=== PATIENT | female | born 1980 | race Caucasian/White ===

== ENCOUNTER 2018-12-29 13:22 | Emergency (ER) | payer BC ==
[2018-12-29 13:37] VITALS: BP 122/84; PULSE 80
[2018-12-29] MEDS ORDERED: diphenhydrAMINE 50 MG/ML SDV IVPUSH ONE (13:38)
[2018-12-29] MEDS ORDERED: Ondansetron 4 MG/2 ML SDV IVPUSH ONE (13:38)
[2018-12-29] MEDS ORDERED: Sodium Chloride 0.9% 1,000 ML IV ONE (13:38)
[2018-12-29] MEDS ORDERED: Metoclopramide 10 MG/2 ML SDV IV ONE (13:38)
--- NOTE | 2018-12-29 13:48 | EDM.PDOC ---
ED HPI GENERAL MEDICAL PROBLEM - General Chief Complaint: Headache Stated Complaint: HEADACHE Time Seen by Provider: 12/29/18 13:25 Source of Information: Reports: Patient History Limitations: Reports: No Limitations - History of Present Illness INITIAL COMMENTS - FREE TEXT/NARRATIVE: HISTORY AND PHYSICAL: History of present illness: Patient is a 38-year-old female who presents to the ED today with concern of a headache for the past 2 days. Patient states she has a history of migraines but her headache today is unusual for her usual migraines. Patient states her usual migraines are in the front and are not that bothersome for her. Patient states his headache today is more in the back but does also have nausea and photophobia. Patient states she saw primary care provider at [facility] this morning who gave her 60 mg of Toradol IM. Patient states after the Toradol she did not feel better and started to feel worse so came to the ED. Patient denies any associated of symptoms. Patient denies any other symptoms or concerns. Patient states she is not as her has a vasectomy. Patient denies fever, chills, chest pain, shortness of breath, or cough. Denies neck stiff ness, change in vision, syncope, or near syncope. Denies vomiting, abdominal pain, diarrhea, constipation, or dysuria. Has not noted any blood in urine or stool. Patient has been eating and drinking appropriately. Review of systems: As per history of present illness and below otherwise all systems reviewed and negative. Past medical history: As per history of present illness and as reviewed below otherwise noncontributory. Surgical history: As per history of present illness and as reviewed below otherwise noncontributory. Social history: See social history for further information Family history: As per history of present illness and as reviewed below otherwise noncontributory. Physical exam: General: Patient is alert, oriented, and in no acute distress. Patient sitting comfortably on exam table. HEENT: Atraumatic, normocephalic, pupils equal and reactive bilaterally, negative for conjunctival pallor or scleral icterus, mucous membranes moist, TMs normal bilaterally, throat clear, neck supple, nontender, trachea midline. No drooling or trismus noted. No meningeal signs. No hot potato voice noted. Lungs: Clear to auscultation, breath sounds equal bilaterally, chest nontender. Heart: S1S2, regular rate and rhythm without overt murmur Abdomen: Soft, nondistended, nontender. Negative for masses or hepatosplenomegaly. Negative for costovertebral tenderness. Pelvis: Stable nontender. Genitourinary: Deferred. Rectal: Deferred. Skin: Intact, warm, dry. No lesions or rashes noted. Extremities: Atraumatic, negative for cords or calf pain. Neurovascular unremarkable. Neuro: Awake, alert, oriented. Cranial nerves II through XII unremarkable. Cerebellum unremarkable. Motor and sensory unremarkable throughout. Exam nonfocal. Notes: Patient does express improvement of her symptoms today in the ED. Discussed the importance for follow-up with a primary care provider. Voices understanding and is agreeable to plan of care. Denies any further questions or concerns at this time. Diagnostics: Head CT Therapeutics: Saline, Zofran, Benadryl, Reglan Prescription: None Impression: Headache Plan: 1. Encourage small but frequent sips of fluid to prevent dehydration. 2. You can alternate ibuprofen and Tylenol as directed for pain and discomfort. 3. Follow up with your primary care provider as discussed. Return to the ED as needed and as discussed. Definitive disposition and diagnosis as appropriate pending reevaluation and review of above. Headahce Pain Score (Numeric/FACES): 7 - Related Data Allergies Allergy/AdvReac Type Severity Reaction Status Date / Time Sulfa (Sulfonamide Allergy Hives Verified 12/29/18 13:28 Antibiotics) narcotics Allergy Itching Uncoded 09/10/15 21:42 Home Meds: Home Meds Albuterol Sulfate [Albuterol Sulfate HFA] 1 puff INH ASDIRECTED PRN 03/15/14 [ History] LORazepam [Ativan] 1 mg PO DAILY PRN 09/10/15 [History] Ondansetron [Zofran ODT] 4 mg PO PRN 12/29/18 [History] Past Medical History HEENT History: Reports: None Cardiovascular History: Reports: None Respiratory History: Reports: Asthma Gastrointestinal History: Reports: None Genitourinary History: Reports: None [employer]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: Musculoskeletal History: Reports: None Neurological History: Reports: Migraines Psychiatric History: Reports: Anxiety Endocrine/Metabolic History: Reports: None Hematologic History: Reports: None Immunologic History: Reports: None Oncologic (Cancer) History: Reports: None Dermatologic History: Reports: Other (See Below) Other Dermatologic History: right forearm cyst ( benign) - Infectious Disease History Infectious Disease History: Reports: None - Past Surgical History Head Surgeries/Procedures: Reports: None HEENT Surgical History: Reports: None Cardiovascular Surgical History: Reports: None Respiratory Surgical History: Reports: None GI Surgical History: Reports: None Female Surgical History: Reports: None Endocrine Surgical History: Reports: None Social & Family History - Family History Family Medical History: Noncontributory - Tobacco Use Smoking Status *Q: Never Smoker Second Hand Smoke Exposure: No - Caffeine Use Caffeine Use: Reports: Coffee, Soda - Recreational Drug Use Recreational Drug Use: No ED ROS GENERAL - Review of Systems Review Of Systems: Comprehensive ROS is negative, except as noted in HPI. ED EXAM, GENERAL - Physical Exam Exam: See Below (See dictation) Course - Vital Signs Last Recorded V/S: Last Vital Signs Temp 97.6 F 12/29/18 13:34 Pulse 80 12/29/18 13:34 Resp 18 12/29/18 13:34 BP 122/84 12/29/18 13:34 Pulse Ox 98 12/29/18 13:34 - Orders/Labs/Meds Meds: Medications Discontinued Medications Generic Name Dose Route Start Last Admin Trade Name Guillaumeq PRN Reason Stop Dose Admin Diphenhydramine HCl 50 mg 12/29/18 13:38 12/29/18 14:11 Benadryl IVPUSH 12/29/18 13:39 50 mg ONETIME ONE Administration Sodium Chloride 1,000 mls @ 999 mls/hr 12/29/18 13:38 12/29/18 14:11 Normal Saline IV 12/29/18 14:38 999 mls/hr STAT ONE Administration Metoclopramide HCl 10 mg 12/29/18 13:38 12/29/18 14:14 Reglan IV 12/29/18 13:39 10 mg ONETIME ONE Administration Ondansetron HCl 4 mg 12/29/18 13:38 12/29/18 14:12 Zofran IVPUSH 12/29/18 13:39 4 mg ONETIME ONE Administration Departure - Departure Time of Disposition: 14:53 Disposition: Home, Self-Care 01 Clinical Impression: Headache Qualifiers: Headache type: unspecified Headache chronicity pattern: acute headache Intractability: not intractable Qualified Code(s): R51 - Headache - Discharge Information Referrals: Dima Pimentel MD [Primary Care Provider] - Forms: ED Department Discharge Additional Instructions: The following information is given to patients seen in the emergency department who are being discharged to home. This information is to outline your options for follow-up care. We provide all patients seen in our emergency department with a follow-up referral. The need for follow-up, as well as the timing and circumstances, are variable depending upon the specifics of your emergency department visit. If you don't have a primary care physician on staff, we will provide you with a referral. We always advise you to contact your personal physician following an emergency department visit to inform them of the circumstance of the visit and for follow-up with them and/or the need for any referrals to a consulting specialist. The emergency department will also refer you to a specialist when appropriate. This referral assures that you have the opportunity for follow-up care with a specialist. All of these measure are taken in an effort to provide you with optimal care, which includes your follow-up. Under all circumstances we always encourage you to contact your private physician who remains a resource for coordinating your care. When calling for follow-up care, please make the office aware that this follow-up is from your recent emergency room visit. If for any reason you are refused follow-up, please contact the [facility] Emergency Department at and asked to speak to the emergency department charge nurse. [facility] [address] [place] [id number] [facility] [address] [place] [id number] 1. Encourage small but frequent sips of fluid to prevent dehydration. 2. You can alternate ibuprofen and Tylenol as directed for pain and discomfort. 3. Follow up with your primary care provider as discussed. Return to the ED as needed and as discussed.
--- NOTE | 2018-12-29 14:24 | CT ---
EXAM DATE: 12/29/18 PATIENT'S AGE: [address] Technique: Multiple axial sections through the brain were obtained. Intravenous contrast was not utilized. Comparison: Prior head CT study of 09/10/15. Findings: Ventricles along with basal cisterns and sulci over convexities appear within normal limits. No abnormal parenchymal densities are seen. No evidence of intracranial hemorrhage. No midline shift or mass effect is seen. Bone window settings were obtained. No acute paranasal sinus findings are seen within the visualized sinuses. Mastoid sinuses are clear. No acute calvarial abnormality is appreciated. Impression: 1. Nothing acute is appreciated on noncontrast head CT exam. Diagnostic code #1 Report Signed by Proxy. [facility]
== END 2018-12-29 15:47 | disposition home or self-care (01) ==
LOC: MW.ED 13:22
DX: R51 Headache (principal); J45.909 Unspecified asthma, uncomplicated; F41.9 Anxiety disorder, unspecified; Z88.2 Allergy status to sulfonamides; Z88.5 Allergy status to narcotic agent; Z79.899 Other long term (current) drug therapy
CPT/HCPCS: 70450; 96374; 96375; 99284; J1200; J2405; J2765; J7040; 99283

== ENCOUNTER 2020-04-07 11:51 | Emergency (ER) | payer BC ==
[2020-04-07] MEDS ORDERED: Sodium Chloride 0.9% 10 ML Syringe FLUSH PRN (12:52)
[2020-04-07] MEDS ORDERED: Sodium Chloride 0.9% 2.5 ML Syringe FLUSH PRN (12:52)
[2020-04-07] MEDS ORDERED: Morphine 4 MG/ML Syringe IVPUSH ONE ×2 (12:54→15:18)
[2020-04-07] MEDS ORDERED: diphenhydrAMINE 50 MG/ML SDV IVPUSH ONE (12:54)
[2020-04-07] MEDS ORDERED: Ketorolac 30 MG/ML SDV IVPUSH ONE (12:54)
[2020-04-07] MEDS ORDERED: Sodium Chloride 0.9% 1,000 ML IV ONE (12:55)
--- NOTE | 2020-04-07 13:18 | EDM.PDOC ---
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 Patient complains of pain with movement in the right wrist, radiating to the back of her right elbow which is typical for her. Patient states she took 1 dose of her Lyrica this morning and one [id number] Advil last night for her symptoms. She has had multiple surgeries at [facility] with a vascular specialist as the AV malformations are "disrupting nerves" which have resulted in some weakness of her hand according to patient. Patient stats she had a surgery in January 2020 and is scheduled to have another surgery in 1 month at [facility] to further address the pain that the AV malformations are causing. She states that she saw her surgeon this past week and was told to expect worsening pain and at this time surgery is still scheduled for 1 month out. Patient denies any new weakness of the hand/extremity from her baseline, any new swelling, or discoloration. Denies injury or trauma. Patient denies fever, chills, chest pain, shortness of breath, or cough. Denies headache, neck stiff ness, change in vision, syncope, or near syncope. Denies nausea, vomiting, abdominal pain, diarrhea, constipation, or dysuria. Has not noted any blood in urine or stool. Patient has been eating and drinking appropriately. Review of systems: As per history of present illness and below otherwise all systems reviewed and negative. Past medical history: As per history of present illness and as reviewed below otherwise noncontributory. Surgical history: As per history of present illness and as reviewed below otherwise noncontributory. Social history: See social history for further information Family history: As per history of present illness and as reviewed below otherwise noncontributory. Physical exam: General: Patient is alert, oriented, and in no acute distress. Patient sitting on exam table, holding right arm cradled into abdomen. Vitals stable and reviewed by me. HEENT: Atraumatic, normocephalic, pupils equal and reactive bilaterally, negative for conjunctival pallor or scleral icterus, mucous membranes moist, TMs normal bilaterally, throat clear, neck supple, nontender, trachea midline. No drooling or trismus noted. No meningeal signs. No hot potato voice noted. Lungs: Clear to auscultation, breath sounds equal bilaterally, chest nontender. Heart: S1S2, regular rate and rhythm without overt murmur. Abdomen: Soft, nondistended, nontender. Negative for masses or hepatos plenomegaly. Negative for costovertebral tenderness. Pelvis: Stable nontender. Genitourinary: Deferred. Rectal: Deferred. Skin: No abnormal redness, pallor, superficial ecchymosis, or poikilothermia noted in right forearm compared to left forearm. There are areas of increased vascular tissues noted underneath the forearm. Otherwise, intact, warm, dry. No lesions or rashes noted. Extremities: There is a healed remote incision over the right forearm that is well healed, consistent with recent surgical history. Decreased right wrist strength, which patient states is baseline. Patient does have full ROM of the complete right UE but does have hesitancy with ROM of the right wrist and significant pain with ROM of right wrist. Radial and ulnar pulses intact of the RUE via bedside doppler. Cap refill < 2 seconds of RUE. Otherwise, atraumatic, negative for cords or calf pain. Neurovascular unremarkable; circulation of ulnar and radial arteries of the right wrist confirmed with Doppler ultrasound. Compartments soft. No gross deformity noted. No swelling noted. Neuro: Awake, alert, oriented. Cranial nerves II through XII unremarkable. Cerebellum unremarkable. Motor and sensory unremarkable throughout. Exam nonfocal. Notes: Upon initial exam on patient, she is uncomfortable with movement of her right wrist. She does have decreased strength of her right wrist but states that this is per her her baseline and has not changed. She denies any anaphylactic allergies to pain medication but states that she has been "itchy" with narcotic use in the past. Patient was premedicated with 50 mg of Benadryl prior to administration of pain medication. Upon reexamination of patient after therapeutics, she appears much more comfortable and states that she has improvement of her pain of her forearm. I had a through discussion with patient about contacting her surgeon at [facility], as she is scheduled to have surgery on the AV malformations in 1 month. Voices understanding and is agreeable to plan of care. Denies any further questions or concerns at this time. Diagnostics: CBC, CMP, beta hCG, CT with contrast of the right upper extremity Therapeutics: Toradol, morphine, diphenhydramine, normal saline Prescription: Liberty (#5) Impression: Right forearm pain, acute on chronic AV malformations, right forearm Plan: 1. Rest the affected extremity. 2. Tylenol and/or Ibuprofen as directed for pain management or discomfort. Take medication as prescribed for moderate-severe pain. Caution taking this medication outside of the home. Do not operate vehicles or heavy equipment while taking this medication. 3. Follow up with your vascular surgeon as discussed. Return to the ED as needed and as discussed. Definitive disposition and diagnosis as appropriate pending reevaluation and review of above. R arm Pain Score (Numeric/FACES): 7 - Related Data Allergies Allergy/AdvReac Type Severity Reaction Status Date / Time Sulfa (Sulfonamide Allergy Hives Verified 04/07/20 12:05 Antibiotics) narcotics Allergy Itching Uncoded 04/07/20 12:05 Home Meds: Home Meds Albuterol Sulfate [Albuterol Sulfate HFA] 1 puff INH ASDIRECTED PRN 03/15/14 [History] Acetaminophen/HYDROcodone [Liberty 325-5 MG] 1 tab PO Q6H PRN #5 tablet 04/07/20 [Rx] Pregabalin [Lyrica] 75 mg PO BID 04/07/20 [History] Past Medical History HEENT History: Reports: None Cardiovascular History: Reports: None Respiratory History: Reports: Asthma Gastrointestinal History: Reports: None Genitourinary History: Reports: None [employer]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: Musculoskeletal History: Reports: None Neurological History: Reports: Migraines Psychiatric History: Reports: Anxiety Endocrine/Metabolic History: Reports: None Hematologic History: Reports: None Immunologic History: Reports: None Oncologic (Cancer) History: Reports: None Dermatologic History: Reports: Other (See Below) Other Dermatologic History: right forearm cyst ( benign) - Infectious Disease History Infectious Disease History: Reports: None - Past Surgical History Head Surgeries/Procedures: Reports: None HEENT Surgical History: Reports: None Cardiovascular Surgical History: Reports: None Respiratory Surgical History: Reports: None GI Surgical History: Reports: None Female Surgical History: Reports: None Endocrine Surgical History: Reports: None Social & Family History - Family History Family Medical History: No Pertinent Family History - Caffeine Use Caffeine Use: Reports: Coffee, Soda Review of Systems - Review of Systems Review Of Systems: Comprehensive ROS is negative, except as noted in HPI. ED EXAM, GENERAL - Physical Exam Exam: See Below (see dictation) Course - Vital Signs Last Recorded V/S: Last Vital Signs Temp 98.1 F 04/07/20 11:58 Pulse 74 04/07/20 16:00 Resp 15 04/07/20 16:00 BP 112/71 04/07/20 16:00 Pulse Ox 97 04/07/20 16:00 - Orders/Labs/Meds Orders: Active Orders 24 hr Category Date Time Status Saline Lock Insert [OM.PC] Stat Oth 04/07/20 12:52 Ordered Labs: Laboratory Tests 04/07/20 04/07/20 04/07/20 Range/Units 13:08 13:08 13:08 WBC 5.91 (4.0-11.0) K/uL RBC 4.39 (4.30-5.90) M/uL Hgb 11.1 L (12.0-16.0) g/dL Hct 36.4 (36.0-46.0) % MCV 82.9 (80.0-98.0) fL MCH 25.3 L (27.0-32.0) pg MCHC 30.5 L (31.0-37.0) g/dL RDW Std Deviation 55.9 (28.0-62.0) fl RDW Coeff of Ramiro 18 H (11.0-15.0) % Plt Count 435 H (150-400) K/uL MPV 9.60 (7.40-12.00) fL Neut % (Auto) 48.4 (48.0-80.0) % Lymph % (Auto) 36.0 (16.0-40.0) % Erie % (Auto) 12.2 (0.0-15.0) % Eos % (Auto) 2.2 (0.0-7.0) % Baso % (Auto) 1.2 (0.0-1.5) % Neut # (Auto) 2.9 (1.4-5.7) K/uL Lymph # (Auto) 2.1 (0.6-2.4) K/uL Erie # (Auto) 0.7 (0.0-0.8) K/uL Eos # (Auto) 0.1 (0.0-0.7) K/uL Baso # (Auto) 0.1 (0.0-0.1) K/uL Nucleated RBC % 0.0 /100WBC Nucleated RBCs # 0 K/uL Sodium 141 (136-145) mmol/L Potassium 3.5 (3.5-5.1) mmol/L Chloride 106 (98-107) mmol/L Carbon Dioxide 26.2 (21.0-32.0) mmol/L BUN 10 (7.0-18.0) mg/dL Creatinine 0.8 (0.6-1.0) mg/dL Est Cr Clr Drug Dosing 89.26 mL/min Estimated GFR (MDRD) > 60.0 ml/min Glucose 81 (74-106) mg/dL Calcium 8.3 L (8.5-10.1) mg/dL Total Bilirubin 0.4 (0.2-1.0) mg/dL AST 9 L (15-37) IU/L ALT 14 (14-63) IU/L Alkaline Phosphatase 83 (46-116) U/L Total Protein 7.4 (6.4-8.2) g/dL Albumin 3.6 (3.4-5.0) g/dL Globulin 3.8 (2.6-4.0) g/dL Albumin/Globulin Ratio 0.9 (0.9-1.6) HCG, Qual NEGATIVE (NEG) Meds: Medications Discontinued Medications Generic Name Dose Route Start Last Admin Trade Name Freq PRN Reason Stop Dose Admin Diphenhydramine HCl 50 mg 04/07/20 12:54 04/07/20 13:11 Benadryl IVPUSH 04/07/20 12:55 50 mg ONETIME ONE Administration Sodium Chloride 1,000 mls @ 999 mls/hr 04/07/20 12:55 04/07/20 13:11 Normal Saline IV 04/07/20 13:55 999 mls/hr STAT ONE Administration Iopamidol 100 ml 04/07/20 14:36 04/07/20 14:36 Isovue Multipack-370 (76%) IVPUSH 04/07/20 14:37 100 ml ONETIME ONE Administration Ketorolac Tromethamine 30 mg 04/07/20 12:54 04/07/20 13:13 Toradol IVPUSH 04/07/20 12:55 30 mg ONETIME ONE Administration Morphine Sulfate 4 mg 04/07/20 12:54 04/07/20 13:24 Morphine IVPUSH 04/07/20 12:55 4 mg ONETIME ONE Administration Morphine Sulfate 4 mg 04/07/20 15:18 04/07/20 15:22 Morphine IVPUSH 04/07/20 15:19 4 mg ONETIME ONE Administration Ondansetron HCl 4 mg 04/07/20 13:52 04/07/20 13:59 Zofran IVPUSH 04/07/20 13:53 4 mg ONETIME ONE Administration Sodium Chloride 10 ml 04/07/20 12:52 04/07/20 13:11 Saline Flush FLUSH 10 ml ASDIRECTED PRN Administration Keep Vein Open Sodium Chloride 2.5 ml 04/07/20 12:52 04/07/20 13:11 Saline Flush FLUSH 2.5 ml ASDIRECTED PRN Administration Keep Vein Open Departure - Departure Time of Disposition: 15:49 Disposition: Home, Self-Care 01 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 This information is to outline your options for follow-up care. We provide all patients seen in our emergency department with a follow-up referral. The need for follow-up, as well as the timing and circumstances, are variable depending upon the specifics of your emergency department visit. If you don't have a primary care physician on staff, we will provide you with a referral. We always advise you to contact your personal physician following an emergency department visit to inform them of the circumstance of the visit and for follow-up with them and/or the need for any referrals to a consulting specialist. The emergency department will also refer you to a specialist when appropriate. This referral assures that you have the opportunity for follow-up care with a specialist. All of these measure are taken in an effort to provide you with optimal care, which includes your follow-up. Under all circumstances we always encourage you to contact your private physician who remains a resource for coordinating your care. When calling for follow-up care, please make the office aware that this follow-up is from your recent emergency room visit. If for any reason you are refused follow-up, please contact the [facility] Emergency Department at and asked to speak to the emergency department charge nurse. [facility] [address] [place] [id number] [facility] [address] [place] [id number] 1. Rest the affected extremity. 2. Tylenol and/or Ibuprofen as directed for pain management or discomfort. Take medication as prescribed for moderate-severe pain. Caution taking this medication outside of the home. Do not operate vehicles or heavy equipment while taking this medication. 3. Follow up with your vascular surgeon as discussed. Return to the ED as needed and as discussed. Sepsis Event Note (ED) - Evaluation Sepsis Screening Result: No Definite Risk - Focused Exam Vital Signs: Vital Signs Temp Pulse Resp BP Pulse Ox 04/07/20 16:00 74 15 112/71 97 04/07/20 15:15 74 17 111/70 98 04/07/20 13:15 103 H 17 118/87 97 04/07/20 11:58 98.1 F 80 17 115/68 97 - My Orders Last 24 Hours: My Active Orders 04/07/20 12:52 Saline Lock Insert [OM.PC] Stat - Assessment/Plan Last 24 Hours: My Active Orders 04/07/20 12:52 Saline Lock Insert [OM.PC] Stat
[2020-04-07 13:41] LABS: BLOOD UREA NITROGEN,BUN 10 mg/dL (7.0-18.0); CARBON DIOXIDE,CO2 26.2 mmol/L (21.0-32.0); CHLORIDE,CL 106 mmol/L (98-107); GLUCOSE RANDOM 81 mg/dL (74-106); POTASSIUM,K 3.5 mmol/L (3.5-5.1); SODIUM,NA 141 mmol/L (136-145)
[2020-04-07] MEDS ORDERED: Ondansetron 4 MG/2 ML SDV IVPUSH ONE (13:52)
[2020-04-07] MEDS ORDERED: Iopamidol 755 MG/ML 500 ML Multipack Bottle IVPUSH ONE (14:36)
--- NOTE | 2020-04-07 15:09 | CT ---
HISTORY: Arm pain. History vascular malformation and multiple surgeries. TECHNIQUE: CT angiogram of the right arm with IV contrast. 100 mL [id number] IV. COMPARISON: Right upper extremity MRI 08/01/2019. FINDINGS: Surgical clips in the antecubital fossa and deep ulnar sided soft tissues in the forearm. Reticular fat within dorsal aspect of the forearm flexor musculature compatible with known vascular malformation. Scattered small phleboliths within the vascular malformation. Vascular malformation is not well delineated on CT. No arterial enhancement within vascular malformation. No hematoma or contrast extravasation. Major right upper extremity arteries are patent. No acute bone abnormality. IMPRESSION: Reticular fat and phleboliths within the forearm flexor musculature compatible with known vascular malformation. Vascular malformation is not well delineated on CT. No hematoma or contrast extravasation. Major right upper extremity arteries are patent. Please note that all CT scans at this facility use dose modulation, iterative reconstruction, and/or weight-based dosing when appropriate to reduce radiation dose to as low as reasonably achievable. Dictated by Vinicius Hammer MD @ Apr 07 2020 3:01PM Signed by Dr. Vinicius Hammer @ Apr 07 2020 3:08PM
[2020-04-07 15:25] VITALS: PULSE 74
[2020-04-07 16:08] VITALS: BP 112/71
== END 2020-04-07 16:04 | disposition home or self-care (01) ==
LOC: MW.ED 11:51
DX: Q27.31 Arteriovenous malformation of vessel of upper limb (principal); J45.909 Unspecified asthma, uncomplicated; Z88.2 Allergy status to sulfonamides; Z88.8 Allergy status to other drugs, medicaments and biological substances
CPT/HCPCS: 36415; 73206; 80053; 84703; 85025; 96374; 96375; 96376; 99284; J1200; J1885; J2270; J2405; J7030; Q9967; 99283

== ENCOUNTER 2020-05-08 13:16 | Emergency (ER) | payer BC ==
[2020-05-08] MEDS ORDERED: Ketorolac 15 MG/ML SDV IM ONE (14:10)
[2020-05-08] MEDS ORDERED: oxyCODONE 5 MG Tab PO ONE (14:23)
--- NOTE | 2020-05-08 15:45 | EDM.PDOC ---
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 The patient states that on April 30, 2019 when she had an operation to remove a vascular malformation in her right arm. She states that she had to incision at that time. She states that she seems to not be able to keep the pain under control. She states that she has been taking oxycodone every 4 hours approximately 5 mg at a time. She states that she also takes Lyrica for ulnar and radial nerve pain. She describes the pain as achy and sharp rated 10 out of 10. She denies any numbness, tingling, or weakness. She states that she is able to move her fingers. She denies any aggravating or relieving factors. She states that she still has a splint on. She denies any fevers or chills. She states that she called her surgeon approximately 2 days ago and they told her that she should continue with Tylenol and to keep her follow-up appointment. She states that she has not taken any Tylenol. She denies any other symptoms REVIEW OF SYSTEMS: Constitutional: Denies fever, chills. Eyes: Denies eye pain Ears, Nose, Mouth, & Throat: Denies earache Cardiovascular: Denies chest pain Respiratory: Denies shortness of breath Gastrointestinal: Denies Nausea, vomiting, diarrhea, hematochezia. Genitourinary: Denies hematuria Skin:Denies a rash MSK: Positive for right arm pain Neurological: Denies blurred vision, numbness, tingling, weakness Psychiatric: Denies depression PAST MEDICAL HISTORY: As per history of present illness and as reviewed below otherwise noncontributory. SURGICAL HISTORY: As per history of present illness and as reviewed below otherwise noncontributory. SOCIAL HISTORY: As per history of present illness and as reviewed below otherwise noncontributory. FAMILY HISTORY: As per history of present illness and as reviewed below otherwise noncontributory. EXAMINATION OF ORGAN SYSTEMS/BODY AREAS: Constitutional: Blood pressure was 115/75, heart rate 73, respiratory rate 17 with an oxygen saturation 9 9% on room air. Temperature 36.3 General: Young woman who does not appear to be in acute distress. Psychiatric: Appropriate mood and affect. Eyes: No scleral icterus or conjunctival erythema ENMT: Moist mucous membranes. No pharyngeal erythema Cardiovascular: Regular, rate, and rhythm. No gallops, murmurs, or rubs. Bilateral upper extremity pulses symmetric and intact. Capillary refill is less than 2 seconds in distal right upper extremity. No peripheral edema. No JVD. Respiratory: Lungs clear to auscultation bilaterally. No wheezes, rales, or rhonchi. Gastrointestinal: Soft, non-tender, non-distended. Normoactive bowel sounds Genitourinary: No suprapubic tenderness Musculoskeletal: Normal range of motion of the right elbow, right shoulder and right fingers. Compartments of the right forearm are soft. Skin: There is a large postsurgical incision that appears to be well-healed along the right lateral elbow without any purulent drainage or surrounding erythema. It is mildly tender to palpation. 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 I did contact [facility] and spoke with physician travel assistant that works with Dr. Belle and she stated at this time she does not recommend any imaging and given that the compartments are soft and there is no evidence of infection, hematoma or seroma that the patient should continue with Tylenol and to keep her appointment with them. At this time given no evidence of infection that the right arm Compartments are soft and is neurovascularly intact I did provide the patient with oxycodone by mouth. I did discuss with her at this time that she should follow-up with primary care physician for continued pain management. I discussed with her that she need to keep her appointment with her surgeon. I also discussed with her that she would likely benefit from a pain clinic therefore I did provide her with contact information for pain clinic. I discussed if she had any new or worsening symptoms and gave her strict return precautions. She was amenable to discharge at this time and had no further questions. DISPOSITION: The patient was discharged home in stable condition. The patient will follow up with primary care physician within 2 to 3 days CONDITION: Good PROCEDURES: None FINAL IMPRESSION(S)/DIAGNOSES: 1. Acute postop pain Ari Dale M.D. Right arm Pain Score (Numeric/FACES): 8 - Related Data Allergies Allergy/AdvReac Type Severity Reaction Status Date / Time Sulfa (Sulfonamide Allergy Hives Verified 05/08/20 14:05 Antibiotics) narcotics Allergy Itching Uncoded 04/07/20 12:05 Home Meds: Home Meds Pregabalin [Lyrica] 75 mg PO BID 04/07/20 [History] oxyCODONE 10 mg PO ASDIRECTED 05/08/20 [History] Past Medical History HEENT History: Reports: None Cardiovascular History: Reports: Other (See Below) Other Cardiovascular History: vascular malformation Respiratory History: Reports: Asthma Gastrointestinal History: Reports: None Genitourinary History: Reports: None [employer] History: Reports: Musculoskeletal History: Reports: None Neurological History: Reports: Migraines Psychiatric History: Reports: Anxiety Endocrine/Metabolic History: Reports: None Hematologic History: Reports: None Immunologic History: Reports: None Oncologic (Cancer) History: Reports: None Dermatologic History: Reports: Other (See Below) Other Dermatologic History: right forearm cyst ( benign) - Infectious Disease History Infectious Disease History: Reports: None - Past Surgical History Head Surgeries/Procedures: Reports: None HEENT Surgical History: Reports: None Cardiovascular Surgical History: Reports: None Respiratory Surgical History: Reports: None GI Surgical History: Reports: None Female Surgical History: Reports: None Endocrine Surgical History: Reports: None Neurological Surgical History: Reports: None Musculoskeletal Surgical History: Reports: Other (See Below) Other Musculoskeletal Surgeries/Procedures:: R forearm August and Jan 2020 and April of 2020. Dermatological Surgical History: Reports: None Social & Family History - Family History Family Medical History: No Pertinent Family History - Tobacco Use Tobacco Use Status *Q: Never Tobacco User - Caffeine Use Caffeine Use: Reports: None - Recreational Drug Use Recreational Drug Use: No ED ROS GENERAL - Review of Systems Review Of Systems: See Below ED EXAM, GENERAL - Physical Exam Exam: See Below Course - Vital Signs Last Recorded V/S: Last Vital Signs Temp 36.3 C 05/08/20 14:07 Pulse 71 05/08/20 16:02 Resp 17 05/08/20 14:07 BP 137/68 05/08/20 16:02 Pulse Ox 98 05/08/20 16:02 - Orders/Labs/Meds Meds: Medications Discontinued Medications Generic Name Dose Route Start Last Admin Trade Name Yara PRN Reason Stop Dose Admin Ketorolac Tromethamine 15 mg 05/08/20 14:10 05/08/20 14:25 Ketorolac 15 Mg/Ml Sdv IM 05/08/20 14:11 Not Given ONETIME ONE Oxycodone HCl 10 mg 05/08/20 14:23 05/08/20 14:31 Oxycodone 5 Mg Tab PO 05/08/20 14:24 10 mg ONETIME ONE Administration Departure - Departure Time of Disposition: 15:44 Disposition: Home, Self-Care 01 Condition: Fair Clinical Impression: Post-op pain - Discharge Information *PRESCRIPTION DRUG MONITORING PROGRAM REVIEWED*: No *COPY OF PRESCRIPTION DRUG MONITORING REPORT IN PATIENT ITALIA: No Instructions: Managing Pain Without Opioids, Pain Relief Before and After Surgery Referrals: PCP,None [Primary Care Provider] - Forms: ED Department Discharge Additional Instructions: You evaluate today on an emergent basis. In discussion with your surgeon at [facility] they recommend Tylenol 4000 mg max per day. They would like you to take 1000 mg every 6 hours and keep your arm elevated. Please keep your appointment with them next week. In addition please keep your primary care physician appointment on Wednesday and we will provide you with a contact information for pain clinic. If you have any worsening pain, cold fingers that you feel like do not have blood in them, complete weakness of the fingers or numbness please return to the emergency department. [facility] - Pain Management [address] [place] [id number] The patient is informed of any results of their evaluation and diagnostic workup and all questions are answered. They are given discharge instructions and return precautions. The patient is stable for discharge. The patient states they understand and agree with the plan and that they will return if their symptoms get worse or if they have any new concerns. The following information is given to patients seen in the emergency department who are being discharged to home. This information is to outline your options for follow-up care. We provide all patients seen in our emergency department with a follow-up referral. The need for follow-up, as well as the timing and circumstances, are variable depending upon the specifics of your emergency department visit. If you don't have a primary care physician on staff, we will provide you with a referral. We always advise you to contact your personal physician following an emergency department visit to inform them of the circumstance of the visit and for follow-up with them and/or the need for any referrals to a consulting specialist. The emergency department will also refer you to a specialist when appropriate. This referral assures that you have the opportunity for follow-up care with a specialist. All of these measure are taken in an effort to provide you with optimal care, which includes your follow-up. Under all circumstances we always encourage you to contact your private physician who remains a resource for coordinating your care. When calling for follow-up care, please make the office aware that this follow-up is from your recent emergency room visit. If for any reason you are refused follow-up, please contact the [facility] Emergency Department at and asked to speak to the emergency department charge nurse. Sepsis Event Note (ED) - Evaluation Sepsis Screening Result: No Definite Risk
[2020-05-08 16:02] VITALS: BP 137/68; PULSE 71
== END 2020-05-08 16:02 | disposition home or self-care (01) ==
LOC: MW.ED 13:16
DX: G89.18 Other acute postprocedural pain (principal); J45.909 Unspecified asthma, uncomplicated; Z88.2 Allergy status to sulfonamides; Z88.5 Allergy status to narcotic agent
CPT/HCPCS: 99283; A9270

== ENCOUNTER 2020-08-18 18:23 | Emergency (ER) | payer BC ==
[2020-08-18] MEDS ORDERED: Sodium Chloride 0.9% 2.5 ML Syringe FLUSH PRN (19:11)
[2020-08-18] MEDS ORDERED: Sodium Chloride 0.9% 10 ML Syringe FLUSH PRN (19:11)
[2020-08-18 20:03] LABS: BLOOD UREA NITROGEN,BUN 13 mg/dL (7.0-18.0); CARBON DIOXIDE,CO2 23.9 mmol/L (21.0-32.0); CHLORIDE,CL 106 mmol/L (98-107); GLUCOSE RANDOM 79 mg/dL (74-106); POTASSIUM,K 3.5 mmol/L (3.5-5.1); SODIUM,NA 142 mmol/L (136-145)
--- NOTE | 2020-08-18 20:08 | EDM.PDOC ---
ED HPI GENERAL MEDICAL PROBLEM - General Chief Complaint: Upper Extremity Injury/Pain Stated Complaint: PAIN IN ARM Time Seen by Provider: 08/18/20 19:00 Source of Information: Reports: Patient History Limitations: Reports: No Limitations - History of Present Illness INITIAL COMMENTS - FREE TEXT/NARRATIVE: 40-year-old female with history of right upper extremity AV malformation with multiple surgeries subsequently presents with right forearm neuropathic pain. She was folding cardboard prior to arrival and pinched her right forearm in the act of folding. She notes increased numbness and neuropathic pain to the ulnar nerve distribution distally from the site of the injury. She normally rates 6/10 pain but increased to 8/10 after the injury. She had a pain stimulator placed in her right bicep region on 07/17/20 at [facility] [place] with leads going to the radial and ulnar. She denies changes in strength or weakness to her right upper extremity after the injury. She takes Lyrica for pain. ROS: A 10-point review of systems, other than pertinent positives and negatives as stated per HPI, is otherwise negative Past medical history: No additional pertinent history Past Surgical history: No additional pertinent history Social history: No additional pertinent history Family history: No additional pertinent history PHYSICAL EXAM General: AOx4, GCS = 15, mild distress HEENT: dry mucous membrane Neck: supple, no meningismus, no Kernig or Brudzinski Cardiac: S1S2 RRR Respiratory: CTAB, no crackles or rales, no wheezing Abdomen: Soft, nontender, no rebound or guarding, nondistended, no pulsatile mass. Back: nontender Musculoskeletal: NVI distally, no deformity. Pain stimulator noted to right bicep, 3 cm subcutaneous ecchymosis to the ventral surface of the right mid forearm, hypoesthesia to right fourth and fifth digit on the palmar surface, no paresthesia to median/radial nerve distribution. Normal finger opposition, 5/5 strength all fingers with flexion and extension. Normal strength with wrist flexion and extension. No pain to right elbow. Soft compartments to right forearm. Neuro: No focal deficits, CN 2 - 12 WNL. right forearm Pain Score (Numeric/FACES): 6 - Related Data Allergies Allergy/AdvReac Type Severity Reaction Status Date / Time Sulfa (Sulfonamide Allergy Hives Verified 08/18/20 18:54 Antibiotics) narcotics Allergy Itching Uncoded 08/18/20 18:54 Home Meds: Home Meds Pregabalin [Lyrica] 75 mg PO BID 04/07/20 [History] oxyCODONE 10 mg PO ASDIRECTED 05/08/20 [History] Past Medical History HEENT History: Reports: None Cardiovascular History: Reports: Other (See Below) Other Cardiovascular History: vascular malformation Respiratory History: Reports: Asthma Gastrointestinal History: Reports: None Genitourinary History: Reports: None [employer] SUPERVISOR History: Reports: Musculoskeletal History: Reports: None Neurological History: Reports: Migraines Psychiatric History: Reports: Anxiety Endocrine/Metabolic History: Reports: None Hematologic History: Reports: None Immunologic History: Reports: None Oncologic (Cancer) History: Reports: None Dermatologic History: Reports: Other (See Below) Other Dermatologic History: right forearm cyst ( benign) - Infectious Disease History Infectious Disease History: Reports: None - Past Surgical History Head Surgeries/Procedures: Reports: None HEENT Surgical History: Reports: None Cardiovascular Surgical History: Reports: None Respiratory Surgical History: Reports: None GI Surgical History: Reports: None Female Surgical History: Reports: None Endocrine Surgical History: Reports: None Neurological Surgical History: Reports: None Musculoskeletal Surgical History: Reports: Other (See Below) Other Musculoskeletal Surgeries/Procedures:: R forearm August and Jan 2020 and April of 2020. Dermatological Surgical History: Reports: None Social & Family History - Family History Family Medical History: No Pertinent Family History - Tobacco Use Tobacco Use Status *Q: Never Tobacco User Second Hand Smoke Exposure: No - Caffeine Use Caffeine Use: Reports: None - Recreational Drug Use Recreational Drug Use: No Review of Systems - Review of Systems Review Of Systems: See Below (see dictation) ED EXAM, GENERAL - Physical Exam Exam: See Below (see dictation) Course - Vital Signs Last Recorded V/S: Last Vital Signs Temp 98.0 F 08/18/20 18:50 Pulse 86 08/18/20 20:49 Resp 18 08/18/20 20:49 BP 117/79 08/18/20 20:49 Pulse Ox 100 08/18/20 20:49 - Orders/Labs/Meds Orders: Active Orders 24 hr Category Date Time Status Gabapentin [Neurontin] Med 08/18/20 22:18 Once 100 mg PO ONETIME ONE Sodium Chloride 0.9% [Saline Flush] Med 08/18/20 19:11 Active 10 ml FLUSH ASDIRECTED PRN Sodium Chloride 0.9% [Saline Flush] Med 08/18/20 19:11 Active 2.5 ml FLUSH ASDIRECTED PRN Saline Lock Insert [OM.PC] Stat Oth 08/18/20 19:11 Ordered Medication Orders Sodium Chloride (Sodium Chloride 0.9% 10 Ml Syringe) 10 ml FLUSH ASDIRECTED PRN PRN Reason: Keep Vein Open Last Admin: 08/18/20 19:58 Dose: 10 ml Documented by: [email or web address] Sodium Chloride (Sodium Chloride 0.9% 2.5 Ml Syringe) 2.5 ml FLUSH ASDIRECTED PRN PRN Reason: Keep Vein Open Last Admin: 08/18/20 19:58 Dose: 2.5 ml Documented by: [id number] Labs: Laboratory Tests 08/18/20 08/18/20 08/18/20 Range/Units 19:37 19:37 19:37 WBC 8.85 (4.0-11.0) K/uL RBC 4.10 L (4.30-5.90) M/uL Hgb 10.2 L (12.0-16.0) g/dL Hct 32.1 L (36.0-46.0) % MCV 78.3 L (80.0-98.0) fL MCH 24.9 L (27.0-32.0) pg MCHC 31.8 (31.0-37.0) g/dL RDW Std Deviation 46.2 (28.0-62.0) fl RDW Coeff of Ramiro 16 H (11.0-15.0) % Plt Count 426 H (150-400) K/uL MPV 9.30 (7.40-12.00) fL Neut % (Auto) 57.2 (48.0-80.0) % Lymph % (Auto) 28.4 (16.0-40.0) % Giles % (Auto) 11.6 (0.0-15.0) % Eos % (Auto) 1.7 (0.0-7.0) % Baso % (Auto) 1.1 (0.0-1.5) % Neut # (Auto) 5.1 (1.4-5.7) K/uL Lymph # (Auto) 2.5 H (0.6-2.4) K/uL Giles # (Auto) 1.0 H (0.0-0.8) K/uL Eos # (Auto) 0.2 (0.0-0.7) K/uL Baso # (Auto) 0.1 (0.0-0.1) K/uL Nucleated RBC % 0.0 /100WBC Nucleated RBCs # 0 K/uL APTT 23.2 (18.6-31.3) SEC Sodium 142 (136-145) mmol/L Potassium 3.5 (3.5-5.1) mmol/L Chloride 106 (98-107) mmol/L Carbon Dioxide 23.9 (21.0-32.0) mmol/L BUN 13 (7.0-18.0) mg/dL Creatinine 0.8 (0.6-1.0) mg/dL Est Cr Clr Drug Dosing 89.26 mL/min Estimated GFR (MDRD) > 60.0 ml/min Glucose 79 (74-106) mg/dL Calcium 8.3 L (8.5-10.1) mg/dL Total Bilirubin 0.2 (0.2-1.0) mg/dL AST 14 L (15-37) IU/L ALT 12 L (14-63) IU/L Alkaline Phosphatase 82 (46-116) U/L Total Protein 7.0 (6.4-8.2) g/dL Albumin 3.6 (3.4-5.0) g/dL Globulin 3.4 (2.6-4.0) g/dL Albumin/Globulin Ratio 1.1 (0.9-1.6) Meds: Medications Generic Name Dose Route Start Last Admin Trade Name Freq PRN Reason Stop Dose Admin Sodium Chloride 10 ml 08/18/20 19:11 08/18/20 19:58 Sodium Chloride 0.9% 10 Ml Syringe FLUSH 10 ml ASDIRECTED PRN Administration Keep Vein Open Sodium Chloride 2.5 ml 08/18/20 19:11 08/18/20 19:58 Sodium Chloride 0.9% 2.5 Ml Syringe FLUSH 2.5 ml ASDIRECTED PRN Administration Keep Vein Open Discontinued Medications Generic Name Dose Route Start Last Admin Trade Name Guillaumeq PRN Reason Stop Dose Admin Diphenhydramine HCl 25 mg 08/18/20 20:51 08/18/20 21:00 Diphenhydramine 50 Mg/Ml Sdv IVPUSH 08/18/20 20:52 25 mg ONETIME ONE Administration Iopamidol 100 ml 08/18/20 20:23 08/18/20 20:50 Iopamidol 755 Mg/Ml 500 Ml Multipack Bottle IVPUSH 08/18/20 20:24 100 ml ONETIME STA Administration Morphine Sulfate 4 mg 08/18/20 20:51 08/18/20 21:00 Morphine 4 Mg/Ml Syringe IVPUSH 08/18/20 20:52 4 mg ONETIME ONE Administration Morphine Sulfate 4 mg 08/18/20 21:50 08/18/20 21:56 Morphine 4 Mg/Ml Syringe IVPUSH 08/18/20 21:51 4 mg ONETIME ONE Administration - Re-Assessments/Exams Free Text/Narrative Re-Assessment/Exam: 08/18/205 After given pain meds and gabapentin in the ER, the patient improved and is currently stable for discharge. I performed a repeat exam and did not appreciate new abnormal findings. Patient exhibits normal vital signs and has a normal gait on road test. I advised the patient to return to the ER for reevaluation if symptoms worsened, including fever, worsening pain, or any other worrisome symptoms. I instructed the patient to follow up with their PCP within 2-3 days. MEDICAL DECISION MAKING: I reviewed the patients past medical records, lab and radiographic findings. I discussed the case with the patient. My differential diagnosis included: Contusion, pseudoaneurysm, arterial dissection, nerve injury, compartment syndrome. The affected extremity demonstrated good distal perfusion, warm, pink, cap refill <2 seconds, compartments soft, pulses equal in both extremities. CT angio did not demonstrate pseudoaneurysm, dissection, complications from AVM. Patient understands to return immediately for worsening pain, swelling, fever, numbness/tingling or other concerns and to f/u with PMD if no improvement of symptoms within 3-5 days. Departure - Departure Time of Disposition: 22:20 Disposition: Home, Self-Care 01 Condition: Good Clinical Impression: Contusion of forearm, right - Discharge Information *PRESCRIPTION DRUG MONITORING PROGRAM REVIEWED*: Not Applicable *COPY OF PRESCRIPTION DRUG MONITORING REPORT IN PATIENT ITALIA: Not Applicable Instructions: Contusion, [id number] Referrals: Khanh Manriquez MD [Primary Care Provider] - 3 Days Forms: ED Department Discharge Additional Instructions: The need for follow-up, as well as the timing and circumstances, are variable depending upon the specifics of your emergency department visit. If you don't have a primary care physician on staff, we will provide you with a referral. We always advise you to contact your personal physician following an emergency department visit to inform them of the circumstance of the visit and for follow-up with them and/or the need for any referrals to a consulting specialist. The emergency department will also refer you to a specialist when appropriate. This referral assures that you have the opportunity for follow-up care with a specialist. All of these measure are taken in an effort to provide you with optimal care, which includes your follow-up. Under all circumstances we always encourage you to contact your private physician who remains a resource for coordinating your care. When calling for follow-up care, please make the office aware that this follow-up is from your recent emergency room visit. If for any reason you are refused follow-up, please contact the [facility] Emergency Department at and asked to speak to the emergency department charge nurse. If you do not have a primary care doctor, please follow up with the clinics below within 3-[address] days[address] [facility] - Primary Care [address] [place] [address] [id number] [address] [address] Sepsis Event Note (ED) - Evaluation Sepsis Screening Result: No Definite Risk - Focused Exam Vital Signs: Vital Signs Temp Pulse Resp BP Pulse Ox 08/18/20 20:49 86 18 117/79 100 08/18/20 18:50 98.0 F 97 18 113/72 98 - My Orders Last 24 Hours: My Active Orders 08/18/20 22:18 Gabapentin [Neurontin] 100 mg PO ONETIME ONE - Assessment/Plan Last 24 Hours: My Active Orders 08/18/20 22:18 Gabapentin [Neurontin] 100 mg PO ONETIME ONE
[2020-08-18] MEDS ORDERED: Iopamidol 755 MG/ML 500 ML Multipack Bottle IVPUSH STA (20:23)
[2020-08-18] MEDS ORDERED: Morphine 4 MG/ML Syringe IVPUSH ONE ×2 (20:51→21:50)
[2020-08-18] MEDS ORDERED: diphenhydrAMINE 50 MG/ML SDV IVPUSH ONE (20:51)
--- NOTE | 2020-08-18 21:17 | CT ---
Examination: CTA right arm Indication: Pain following injury to anterior mid forearm. History of AV malformation. Technique: Contiguous axial CTA images of the right arm is acquired from the supraclavicular region through the hand. Portion of the right chest and right abdomen are included in the images. Coronal and sagittal reformations generated and reviewed. 3D reconstructed images generated on an independent workstation. Comparison: None available Findings: Vascular: Subclavian, axillary, brachial, radial, and ulnar arteries are patent with no dissection or extravasation identified. No vessel occlusion. Veins in the arm were not well opacified. There is multiple surgical clips in the antecubital fossa. Adjacent to the surgical clips, a vein appears to be anastomosed to artery which may be surgical AV fistula. The vein is not well opacified which is likely related to contrast bolus timing. There is some mild soft tissue swelling over that olecranon and posterior forearm without significant hematoma or extravasation. Nonvascular: No pulmonary opacities or pulmonary nodules. Pleural space clear. Central airway is patent. Mild dependent atelectasis in right lung base. Liver is partially imaged. No definite liver lesions. Gallbladder unremarkable. Visualized bowel is unremarkable. Right kidney is unremarkable. There are no acute or aggressive osseous abnormality is identified. Impression: 1. Right upper extremity arteries are patent with no evidence of extravasation or vascular injury. No hematoma. 2. Soft tissue swelling posterior soft tissues of the forearm and elbow. Please note that all CT scans at this facility use dose modulation, iterative reconstruction, and/or weight-based dosing when appropriate to reduce radiation dose to as low as reasonably achievable. Dictated by Derrick Ivey MD @ 08/19/2020 10:29:[address] Derrick Ivey @ Aug 19 2020 10:29AM
[2020-08-18] MEDS ORDERED: Gabapentin 100 MG Cap PO ONE (22:18)
[2020-08-18 22:31] VITALS: BP 117/73; PULSE 73
== END 2020-08-18 22:35 | disposition home or self-care (01) ==
LOC: MW.ED 18:23
DX: S50.11XA Contusion of right forearm, initial encounter (principal); Z88.5 Allergy status to narcotic agent; Z88.2 Allergy status to sulfonamides; W22.8XXA Striking against or struck by other objects, initial encounter
CPT/HCPCS: 36415; 73206; 80053; 85025; 85730; 96374; 96375; 96376; 99284; A9270; J1200; J2270; Q9967

== ENCOUNTER 2021-03-06 01:14 | Emergency (ER) | payer BC ==
[2021-03-06] MEDS ORDERED: Sodium Chloride 0.9% 1,000 ML IV ONE (01:52)
[2021-03-06] MEDS ORDERED: Aspirin 81 MG Tab.Chew PO ONE (01:52)
[2021-03-06 02:04] LABS: BLOOD UREA NITROGEN,BUN 13 mg/dL (7.0-18.0); CARBON DIOXIDE,CO2 25.6 mmol/L (21.0-32.0); CHLORIDE,CL 105 mmol/L (98-107); GLUCOSE RANDOM 117 mg/dL (74-106); POTASSIUM,K 3.5 mmol/L (3.5-5.1); SODIUM,NA 141 mmol/L (136-145)
[2021-03-06] MEDS ORDERED: Iopamidol 755 MG/ML 500 ML Multipack Bottle IVPUSH STA (03:16)
[2021-03-06 04:11] VITALS: BP 109/72; PULSE 78
== END 2021-03-06 04:12 | disposition home or self-care (01) ==
LOC: MW.ED 01:14
DX: B34.9 Viral infection, unspecified (principal); Z88.2 Allergy status to sulfonamides; Z88.5 Allergy status to narcotic agent; Z20.822 Contact with and (suspected) exposure to COVID-19
CPT/HCPCS: 36415; 71045; 71275; 80053; 84484; 84703; 85025; 85379; 86140; 87635; 87804; 93005; 99285; A9270; J7030; Q9967; U0002

== ENCOUNTER 2021-06-28 11:41 | Emergency (ER) | payer BC ==
[2021-06-28] MEDS ORDERED: Lactated Ringers 1,000 ML IV STA (11:59)
[2021-06-28] MEDS ORDERED: Ondansetron 4 MG/2 ML SDV IVPUSH ONE (11:59)
[2021-06-28 12:43] LABS: BLOOD UREA NITROGEN,BUN 10 mg/dL (7.0-18.0); CARBON DIOXIDE,CO2 25.5 mmol/L (21.0-32.0); CHLORIDE,CL 105 mmol/L (98-107); GLUCOSE RANDOM 87 mg/dL (74-106); POTASSIUM,K 4.1 mmol/L (3.5-5.1); SODIUM,NA 140 mmol/L (136-145)
[2021-06-28] MEDS ORDERED: diphenhydrAMINE 50 MG/ML SDV IVPUSH ONE (13:07)
[2021-06-28] MEDS ORDERED: Prochlorperazine 10 MG/2 ML SDV IVPUSH ONE (13:07)
[2021-06-28] MEDS ORDERED: Ketorolac 30 MG/ML SDV IM STA (13:07)
[2021-06-28] MEDS ORDERED: Ketorolac 30 MG/ML SDV IVPUSH ONE (13:38)
[2021-06-28 14:35] VITALS: BP 121/68; PULSE 67
[2021-06-28] MEDS ORDERED: Iopamidol 755 MG/ML 500 ML Multipack Bottle IVPUSH ONE (18:54)
== END 2021-06-28 14:35 | disposition home or self-care (01) ==
LOC: MW.ED 11:41
DX: G43.909 Migraine, unspecified, not intractable, without status migrainosus (principal); H53.8 Other visual disturbances; Z88.5 Allergy status to narcotic agent; Z88.2 Allergy status to sulfonamides
CPT/HCPCS: 36415; 70450; 70496; 70498; 80048; 84443; 84484; 84703; 85025; 93005; 96374; 96375; 99284; J0780; J1200; J1885; J2405; J7120; Q9967

== ENCOUNTER 2022-03-16 09:43 | Emergency (ER) | payer BC ==
[2022-03-16] MEDS ORDERED: Sodium Chloride 0.9% 1,000 ML IV ONE (10:25)
[2022-03-16 11:07] LABS: CORONAVIRUS COVID-19 NAA NEGATIVE (NEGATIVE); INFLUENZA A NAA NEGATIVE (NEGATIVE); INFLUENZA B NAA NEGATIVE (NEGATIVE)
[2022-03-16 11:14] LABS: CARBON DIOXIDE,CO2 25.3 mmol/L (21.0-32.0); POTASSIUM,K 3.6 mmol/L (3.5-5.1)
[2022-03-16] MEDS ORDERED: Iopamidol 755 MG/ML 500 ML Multipack Bottle IVPUSH STA (11:56)
[2022-03-16 13:12] VITALS: BP 119/80; PULSE 82
== END 2022-03-16 13:10 | disposition home or self-care (01) ==
LOC: MW.ED 09:43
DX: R07.2 Precordial pain (principal); Z20.822 Contact with and (suspected) exposure to COVID-19; Z88.2 Allergy status to sulfonamides; Z88.5 Allergy status to narcotic agent
CPT/HCPCS: 0240U; 36415; 71045; 71275; 80053; 84443; 84484; 84703; 85025; 85379; 86308; 93005; 96360; 99285; J7030; Q9967; 93010; 99284

== ENCOUNTER 2023-01-08 08:26 | Emergency (ER) | payer BC ==
[2023-01-08] MEDS ORDERED: Sodium Chloride 0.9% 1,000 ML IV ONE (08:33)
[2023-01-08 08:58] LABS: HEMATOCRIT 29.9 % (37.0-47.0); HEMOGLOBIN 9.3 g/dL (12.0-16.0); MEAN CORPUSCULAR HEMOGLOBIN 22.7 pg (28.0-32.0); MEAN CORPUSCULAR HGB CONC 31.1 g/dL (32.0-36.0); MEAN CORPUSCULAR VOLUME 72.9 fL (83.0-99.0); PLATELET COUNT,PLT 289 K/uL (150-400); WHITE BLOOD CELL COUNT,WBC 4.29 K/uL (3.9-11.3)
[2023-01-08 08:59] LABS: APPEARANCE,URINE SLT CLOUDY; BILIRUBIN,URINE NEGATIVE (NEGATIVE); COLOR,URINE YELLOW; GLUCOSE,URINE NEGATIVE (NEGATIVE); KETONES,URINE 15 mg/dL (NEGATIVE); LEUKOCYTE ESTERASE,URINE TRACE (NEGATIVE); NITRITE,URINE NEGATIVE (NEGATIVE); OCCULT BLOOD,URINE NEGATIVE (NEGATIVE); PROTEIN,URINE TRACE mg/dL (NEGATIVE); UROBILINOGEN,URINE 0.2 EU/dL (<2.0)
[2023-01-08 09:10] LABS: BACTERIA,URINE FEW (NEGATIVE); EPITHELIAL CELLS,URINE MODERATE (NONE-FEW)
[2023-01-08 09:25] LABS: A/G RATIO 0.9 (0.9-1.6); ALBUMIN 3.4 g/dL (3.4-5.0); BILIRUBIN TOTAL 0.3 mg/dL (0.2-1.0); CALCIUM 8.2 mg/dL (8.5-10.1); CARBON DIOXIDE,CO2 24.9 mmol/L (21.0-32.0); CREATININE 0.7 mg/dL (0.6-1.0); EST CRCL DRUG DOSING (CG) 99.01 mL/min; MAGNESIUM 1.9 mg/dL (1.8-2.4); POTASSIUM,K 3.1 mmol/L (3.5-5.1); PROTEIN TOTAL,TP 7.1 g/dL (6.4-8.2)
[2023-01-08 09:55] LABS: BASOPHILS ABSOLUTE MAN 0.09 K/uL (0.00-0.20); BASOPHILS PERCENT MAN 2 % (0-1); EOSINOPHILS ABSOLUTE MAN 0.21 K/uL (0.00-0.45); EOSINOPHILS PERCENT MAN 5 % (0-6); LYMPHOCYTES ABSOLUTE MAN 1.07 K/uL (1.00-4.80); LYMPHOCYTES PERCENT MAN 25 % (24-44); MONOCYTES ABSOLUTE MAN 0.69 K/uL (0.00-0.80); MONOCYTES PERCENT MAN 16 % (0-8); SEG NEUTROPHILS ABSOLUTE MAN 2.23 K/uL (1.80-7.70); SEG NEUTROPHILS PERCENT MAN 52 % (41-71)
[2023-01-08] MEDS ORDERED: Iopamidol 755 MG/ML 500 ML Multipack Bottle IVPUSH STA (10:30)
[2023-01-08 11:33] VITALS: BP 117/78; PULSE 82
== END 2023-01-08 11:33 | disposition home or self-care (01) ==
LOC: MW.ED 08:26
DX: R10.9 Unspecified abdominal pain (principal); Z86.16 Personal history of COVID-19; Z88.5 Allergy status to narcotic agent; Z88.2 Allergy status to sulfonamides
CPT/HCPCS: 36415; 74177; 80053; 81001; 83690; 83735; 84703; 85025; 96360; 99284; J7030; Q9967

== ENCOUNTER 2023-05-23 17:44 | Emergency (ER) | payer BC ==
[2023-05-23 17:55] VITALS: BP 131/93; PULSE 97
== END 2023-05-23 18:16 | disposition left against medical advice (07) ==
LOC: MW.ED 17:44
DX: Z53.21 Procedure and treatment not carried out due to patient leaving prior to being seen by health care provider (principal)

== ENCOUNTER 2024-12-26 03:20 | Emergency (ER) | payer BC ==
[2024-12-26 03:45] LABS: BASOPHILS ABSOLUTE AUTO 0.10 K/uL (0.00-0.20); BASOPHILS PERCENT AUTO 1.0 % (0.0-1.0); EOSINOPHILS ABSOLUTE AUTO 0.07 K/uL (0.00-0.45); EOSINOPHILS PERCENT AUTO 0.7 % (0.0-6.0); IMMATURE GRAN ABSOLUTE AUTO 0.02 K/uL (0.00-0.05); IMMATURE GRAN PERCENT AUTO 0.2 % (0.0-0.4); LYMPHOCYTES ABSOLUTE AUTO 1.25 K/uL (1.00-4.80); LYMPHOCYTES PERCENT AUTO 12.5 % (24.0-44.0); MEAN PLATELET VOLUME 9.0 fL (9.4-12.3); MONOCYTES ABSOLUTE AUTO 0.66 K/uL (0.00-0.80); MONOCYTES PERCENT AUTO 6.6 % (0.0-8.0); NEUTROPHILS ABSOLUTE AUTO 7.87 K/uL (1.80-7.70); NEUTROPHILS PERCENT AUTO 79.0 % (41.0-71.0); NRBC ABSOLUTE 0.00 K/uL (0.00-0.02); NRBC PERCENT 0.0 /100WBC (0.0-0.2); PLATELET COUNT,PLT 331 K/uL (150-400); RED BLOOD CELL COUNT 4.14 M/uL (4.10-5.30); WHITE BLOOD CELL COUNT,WBC 9.97 K/uL (3.9-11.3)
[2024-12-26] MEDS: Ondansetron 4 MG/2 ML SDV IVPUSH ONE (03:50)
[2024-12-26 03:55] LABS: INR 1.05 (0.86-1.11)
[2024-12-26] MEDS: Iopamidol 755 MG/ML 500 ML Multipack Bottle IVPUSH STA (04:03)
[2024-12-26 04:06] LABS: A/G RATIO 1.1 (0.9-1.6); ALANINE AMINOTRANSFERASE,ALT 10.0 IU/L (14-63); ASPARTATE AMNIOTRANSFERASE,AST 10.0 IU/L (15-37); BILIRUBIN TOTAL 0.6 mg/dL (0.2-1.0); BLOOD UREA NITROGEN,BUN 10.0 mg/dL (7.0-18.0); CARBON DIOXIDE,CO2 24.4 mmol/L (21.0-32.0); CHLORIDE,CL 107.0 mmol/L (98-107); CREATININE 0.8 mg/dL (0.6-1.0); EST CRCL DRUG DOSING (CG) 85.76 mL/min; GLUCOSE RANDOM 98.0 mg/dL (74-106); POTASSIUM,K 3.4 mmol/L (3.5-5.1); PROTEIN TOTAL,TP 7.1 g/dL (6.4-8.2); SODIUM,NA 140.0 mmol/L (136-145)
[2024-12-26 04:10] LABS: ESTIMATED GFR 94.0 mL/min (>60)
[2024-12-26 04:13] VITALS: PULSE 86
[2024-12-26] MEDS: Promethazine 25 MG/ML SDV IM ONE (04:51)
[2024-12-26 06:06] VITALS: BP 121/83
== END 2024-12-26 06:04 | disposition home or self-care (01) ==
LOC: MW.ED 03:20
DX: N93.9 Abnormal uterine and vaginal bleeding, unspecified (principal); Z79.899 Other long term (current) drug therapy; Z88.2 Allergy status to sulfonamides; Z88.8 Allergy status to other drugs, medicaments and biological substances
CPT/HCPCS: 36415; 74177; 74177-26; 76856; 76856-26; 80053; 84703; 85025; 85610; 86850; 86900; 86901; 96372; 96374; 96375; 99284; 99284-25; J2405; J2550; Q9967